=== PATIENT | male | born 1960 | race Caucasian/White ===

== ENCOUNTER 2019-11-11 07:12 | Emergency (ER) | payer BC, OTHER ==
[2019-11-11] MEDS ORDERED: KETOROLAC TROMETHAMINE 60 MG/2 ML VIAL ONE (08:10)
[2019-11-11] MEDS ORDERED: CYCLOBENZAPRINE HCL 10 MG TABLET ONE (08:11)
== END 2019-11-11 08:57 | disposition home or self-care (01) ==
LOC: EDH 07:12
DX: S46.021A Laceration of muscle(s) and tendon(s) of the rotator cuff of right shoulder, initial encounter (principal); Z72.0 Tobacco use; X58.XXXA Exposure to other specified factors, initial encounter; Y93.89 Activity, other specified; Y92.89 Other specified places as the place of occurrence of the external cause; Y99.8 Other external cause status
CPT/HCPCS: 73030; 93005; 96372; 99283; J1885

== ENCOUNTER 2021-09-11 13:33 | Emergency (ER) | payer OTHER ==
[~2021-09-11] VITALS: Ht 175.3 cm; Wt 108.0 kg
[2021-09-11 14:44] LABS: BASOPHILS % (AUTO) 0.3 % (0.0-5.0); EOSINOPHILS % (AUTO) 1.7 % (0.0-8.0); HEMATOCRIT 34.1 % (42-54); LYMPHOCYTES % (AUTO) 12.2 % (21.0-51.0); MEAN CORPUSCULAR HEMOGLOBIN 30.4 pg (27.0-33.0); MEAN CORPUSCULAR VOLUME 89.3 fL (79-99); MONOCYTES % (AUTO) 7.7 % (3.0-13.0); NEUTROPHILS % (AUTO) 77.4 % (40.0-77.0); PLATELET COUNT (AUTO) 190 K/uL (130-400); RED BLOOD CELL COUNT(AUTO) 3.82 MIL/uL (4.50-6.20); RED CELL DISTRIBUTION WIDTH 12.7 % (11.0-15.5); WHITE BLOOD COUNT (AUTO) 10.7 K/uL (4.8-10.8)
[2021-09-11 15:05] LABS: CREATININE 1.4 mg/dL (0.5-1.5); POTASSIUM 4.2 mmol/L (3.5-5.1)
[2021-09-11 15:14] LABS: ALBUMIN 3.4 g/dL (3.5-5.0); TOTAL PROTEIN, SERUM 6.5 g/dL (6.0-8.3)
[2021-09-11 15:17] LABS: PARTIAL THROMBOPLASTIN TIME 71.5 SEC (26.3-35.5)
[2021-09-11 15:21] LABS: INR > 7.00 (0.85-1.15); PROTHROMBIN TIME 79.6 SEC (9.6-11.6)
[2021-09-11 15:37] VITALS: BP 105/67
== END 2021-09-11 15:46 | disposition home or self-care (01) ==
LOC: EDH 13:33
DX: S50.01XA Contusion of right elbow, initial encounter (principal); R79.1 Abnormal coagulation profile; I25.10 Atherosclerotic heart disease of native coronary artery without angina pectoris; E11.9 Type 2 diabetes mellitus without complications; E78.00 Pure hypercholesterolemia, unspecified; I10 Essential (primary) hypertension; X58.XXXA Exposure to other specified factors, initial encounter; Y93.89 Activity, other specified; Y92.89 Other specified places as the place of occurrence of the external cause; Y99.8 Other external cause status
CPT/HCPCS: 36415; 71045; 73070; 80053; 84484; 85025; 85610; 85730; 93931; 93971